=== PATIENT | male | born 1940 | race African-American/Black ===

== ENCOUNTER 2019-05-10 12:02 | Day surgery (SDC) ==
[2019-04-26 16:14] LABS: HEMATOCRIT 39.8 % (42.0-52.0); HEMOGLOBIN 12.7 g/dL (14.0-18.0); MCH 29.7 PG (27-31); MCHC 31.9 g/dL (33-37); MCV 93.2 FL (81-99); MPV 9.9 FL (7.4-10.4); RBC 4.27 XMIL (4.7-6.1); RDW 15.8 % (11.5-14.5); WBC 9.43 X1000 (4.8-10.8)
[2019-04-26 17:15] LABS: AGAP 14; BUN 16 mg/dL (8-22); CALCIUM 9.7 mg/dL (8.8-10.2); CHLORIDE 100 mmol/L (98-107); COSMO 283; CREATININE 0.9 mg/dL (0.7-1.2); ESTIMATED GFR > 60; GLUCOSE 143 mg/dL (70-104); SODIUM 140 mmol/L (136-145); TCO2 26 mmol/L (25-35)
[2019-04-26 17:53] LABS: PROTIME 11.8 Seconds (11.0-16.0)
[2019-04-26 17:54] LABS: PTT 22.6 Seconds (22.3-41.8)
[2019-04-26 17:57] LABS: INR 0.8
[2019-05-10] MEDS: NORCO-7.5 PO PRN ×2 (04:15→21:48)
[2019-05-10] MEDS ORDERED: LR 1,000 ML ONE (12:26)
[2019-05-10] MEDS ORDERED: PEPCID ONE (12:26)
[2019-05-10] MEDS ORDERED: KEFZOL 1 GM/D5W 2 GM/100 ML IVPB ONE (12:26)
[2019-05-10] MEDS ORDERED: REGLAN ONE (12:26)
[2019-05-10] MEDS ORDERED: XYLOCAINE-MPF 2% ONE (14:20)
[2019-05-10] MEDS ORDERED: DIPRIVAN 1% ONE (14:21)
[2019-05-10] MEDS ORDERED: NS 1,000 ML ONE (14:45)
[2019-05-10] MEDS ORDERED: B & O 16A SUPP ONE (14:45)
[2019-05-10] MEDS ORDERED: FENTANYL ONE (15:39)
[2019-05-10] MEDS ORDERED: BREVIBLOC ONE (16:10)
[2019-05-10] MEDS ORDERED: MORPHINE IV PRN (18:19)
[2019-05-10] MEDS ORDERED: DILAUDID IV PRN (18:30)
[2019-05-10] MEDS ORDERED: SODIUM CHLORIDE 0.9% INJ PRN (18:30)
[2019-05-10] MEDS ORDERED: NORCO-5 PO PRN (18:30)
[2019-05-10] MEDS ORDERED: NORCO-10 PO PRN (18:30)
[2019-05-10] MEDS ORDERED: PHENERGAN IV PRN (18:30)
[2019-05-10] MEDS ORDERED: PHENERGAN PR PRN (18:30)
[2019-05-10] MEDS ORDERED: LABETALOL IV PRN (18:30)
[2019-05-10] MEDS ORDERED: PHENERGAN PO PRN (18:30)
[2019-05-10] MEDS ORDERED: ZOFRAN IV PRN (18:30)
[2019-05-10] MEDS ORDERED: BENADRYL LIQUID PO PRN (18:30)
[2019-05-10] MEDS ORDERED: OXY IR PO PRN ×2 (18:30)
--- NOTE | 2019-05-10 20:14 | OPERATIVE NOTE ---
PROCEDURE DATE: 05/10/2019 SURGEON: Ja Boyd MD PREOPERATIVE DIAGNOSIS: 1. Benign prostatic hypertrophy. 2. Weak stream. PROCEDURE: [facility] transurethral resection of prostate. INDICATIONS: A 79-year-old male with history of BPH who has weak stream, nocturia and urgency. He has tried medical therapy with minimal success. He desires definitive intervention. He underwent cystoscopy which revealed significant bilobar prostatic hypertrophy. He was counseled on options and wants to proceed with [facility] TURP. FINDINGS: He had bilobar prostatic hypertrophy in a slight median lobe. Laser settings were 80 up to 140 eastman with energy used of 207,000, 218 joules. Total laser time was 32 minutes and 4 seconds. DESCRIPTION OF PROCEDURE: After obtaining informed consent, patient brought to the operating room. Perioperative antibiotics and laryngeal mask anesthesia were administered. He was placed in lithotomy position, prepped and draped sterile fashion. A 23-Thai resectoscope was introduced and prostatic urethra and bladder were examined. His prostatic urethra showed bilobar prostatic hypertrophy with a slight median lobe. Bladder showed no evidence of mucosal lesions, mild trabeculations, no diverticula and no bladder stones seen. We introduced laser fiber and began prostatic resection starting at 80 eastman at the level of bladder neck at 5 o'clock, 7 o'clock and subsequent 6 o'clock. This was done from the bladder neck down to level verumontanum making sure we did not go distal to verumontanum. We then increased our energy settings to 120 and subsequently 140 eastman to resect posterior lateral prostatic adenoma. We then decreased the energy back to 80 eastman to resect anterior tissue as well as further open the bladder neck and resected the verumontanum level. At the conclusion the case the hemostasis was excellent. There was a nice appearing TUR defect without evidence of residual tissue. The resectoscope was then removed and a 20-Thai [address] Umana catheter was introduced which was then placed on light traction after 30 mL of sterile water instilled in balloon. At that time it was connected to continuous bladder irrigation. There was very little fluid coming out. I attempted to irrigate it and had very little return. Hence we switched the catheter from 20-Thai to 22-Thai and received excellent return at that time. The urine was pink without clots. We placed the catheter on light traction and he was extubated taken to PACU for further recovery. ESTIMATED BLOOD LOSS: 30 mL. COMPLICATIONS: None. DISPOSITION: To PACU and subsequently floor with Umana catheter connected to continuous bladder irrigation. cc: Ja Boyd MD
[2019-05-10] MEDS: COLACE PO SCH (21:48)
[2019-05-10] MEDS: PERIDEX MT SCH (21:48)
[2019-05-11] MEDS ORDERED: CHLORASEPTIC SPRAY MT PRN (00:28)
[2019-05-11] MEDS: KEFZOL 2 GM/D5W 2 GM/50 ML IVPB IV SCH ×2 (00:36→09:14)
[2019-05-11] MEDS ORDERED: VENTOLIN HFA INH PRN (04:04)
[2019-05-11] MEDS: NS 1,000 ML IV SCH ×2 (04:14→06:57)
[2019-05-11] MEDS ORDERED: ALBUTEROL NEB INH ONE (04:25)
[2019-05-11 06:18] LABS: HEMATOCRIT 36.3 % (42.0-52.0); HEMOGLOBIN 11.3 g/dL (14.0-18.0); MCH 30.1 PG (27-31); MCHC 31.1 g/dL (33-37); MCV 96.8 FL (81-99); MPV 9.7 FL (7.4-10.4); RBC 3.75 XMIL (4.7-6.1); RDW 15.5 % (11.5-14.5); WBC 9.79 X1000 (4.8-10.8)
[2019-05-11 06:37] LABS: AGAP 10; BUN 12 mg/dL (8-22); CALCIUM 7.8 mg/dL (8.8-10.2); CHLORIDE 101 mmol/L (98-107); COSMO 281; CREATININE 0.8 mg/dL (0.7-1.2); ESTIMATED GFR > 60; GLUCOSE 162 mg/dL (70-104); POTASSIUM 3.8 mmol/L (3.5-5.1); SODIUM 139 mmol/L (136-145); TCO2 28 mmol/L (25-35)
[2019-05-11] MEDS ORDERED: SYMBICORT 160/4.5 MICROGM INHALER INH SCH (07:30)
[2019-05-11] MEDS ORDERED: SPIRIVA INH SCH (07:30)
[2019-05-11] MEDS ORDERED: AMARYL PO SCH (09:00)
[2019-05-11] MEDS ORDERED: PREDNISONE PO SCH (09:00)
[2019-05-11] MEDS ORDERED: ZYRTEC PO SCH (09:00)
[2019-05-11] MEDS ORDERED: CARDIZEM CD PO SCH (09:00)
[2019-05-11] MEDS ORDERED: HYDROCHLOROTHIAZIDE PO SCH (09:00)
[2019-05-11] MEDS ORDERED: MAGNESIUM GLUCONATE PO SCH (09:00)
[2019-05-11] MEDS ORDERED: KLOR-CON PO SCH (09:00)
[2019-05-11] MEDS ORDERED: ALBUTEROL NEB INH SCH (09:00)
[2019-05-11] MEDS: PERIDEX MT SCH (09:12)
[2019-05-11] MEDS: COLACE PO SCH (09:12)
[2019-05-11 11:21] VITALS: BP 153/75
[2019-05-11] MEDS ORDERED: JANUVIA PO SCH (21:00)
[2019-05-11] MEDS ORDERED: MIRAPEX PO SCH (21:00)
[2019-05-11] MEDS ORDERED: GLUCOPHAGE PO SCH (21:00)
[2019-05-11] MEDS ORDERED: LIPITOR PO SCH (21:00)
[2019-05-11] MEDS ORDERED: SINGULAIR PO SCH (21:00)
[2019-05-11] MEDS ORDERED: REGLAN PO SCH (21:00)
== END 2019-05-11 14:46 | disposition home or self-care (01) ==
LOC: OPS 12:02 → PAT 12:02 → 4N 17:47 → INTOOBSV 17:47 → OPS 05-11 14:46
PROVIDERS: ATTEND Urology